=== PATIENT | male | born 1970 | race Caucasian/White ===

== ENCOUNTER 2016-07-06 05:53 | Emergency (ER) | payer OTHER ==
[~2016-07-06] VITALS: Ht 175.3 cm; Wt 95.5 kg
[~2016-07-06 05:53] MED LIST: HYDR-4003 PO; OMEP20CA11 PO
[2016-07-06 05:56] VITALS: BP 156/101; PULSE 104; RESP 16; O2SAT 96
--- NOTE | 2016-07-06 06:29 | ED.REPORT ---
HPI-Hand Prob/Inj Date of Service Jul 06, 2016 ED Provider: Maida Payan MD 45 year old male presents to the ER complaining of a laceration to the right index finger due to his pocket knife collapsing on the finger while working on his car an hour ago. Last tetanus vaccination was 2013. He does not voice any further medical complaints. Nursing Notes Stated Complaint: RT INDEX FINGER INJURY Chief Complaint: Extremity Trauma Nursing Notes Reviewed: Yes Allergies: Coded Allergies: No Known Allergies (Verified Allergy, Unknown, 02/28/16) Scheduled Cephalexin (Keflex) 500 Mg Capsule 500 MG PO TID Omeprazole (Omeprazole) 20 Mg Capsule.dr 20 MG PO DAILY Scheduled PRN Hydrocodone-Acetaminophen 5-325 mg (Hydrocodone-Acetaminophen 5-325 mg) 1 Each Tablet 1 TABLET PO Q12H PRN PRN For Pain General Time Seen by Provider: 06:28 Chief Complaint Finger injury right Hx Obtained From: Patient Arrived By: Walk-in Onset Occurred: Just prior to arrival Symptom Duration: Since onset Caused by: Accidental, Knife wound Location: Right Hand: : Finger... (Index) Quality: Painful Severity: Current: Moderate Severity: Maximum: Moderate Past Medical History Past Medical History chronic back pain lumbar radiculopathy lumbosacral strain Reports: GERD Past Surgical History none reported Smoking History Never Smoker Social History Alcohol Use: "Social" Drug Use: Denies drug use Other Social History: Lives with parents Ambulatory Status Independent Review of Systems Constitutional: Denies: Chills, Fever Musculoskeletal: Reports: Extremity pain (Right Forefinger), Denies: Back pain, Extremity swelling, Joint pain, Lumbar pain, Neck pain, Thoracic pain Complete sys rev & neg: except as marked. Physical Exam Initial Vital Signs Vital Signs (First) Date Time Temp Pulse Resp B/P Pulse Ox O2 Delivery O2 Flow Rate FiO2 07/06/16 05:56 36.8 104 16 156/101 96 Room Air Initial VS: Reviewed Head / Eyes: Atraumatic, Normocephalic, PERRL Neck: Supple, Non-tender, Full range of motion Extremities: Vascular intact, Neuro intact, No swelling, No tenderness Skin: Warm, Dry, No cyanosis Neurologic: Alert, Oriented, Nonfocal Wrist / Hand: Full range of motion, Neurologic intact, Vascular intact 1cm laceration to the Right index finger involving the edge of nail extending 2-3mm deep not into the pad of the finger. Wound is dressed and does not need sutures. Upper Extremity / MS: Atraumatic, Inspection NL, Full range of motion, No swelling, Non-tender, No deformity, Neurologic intact, Vascular intact Lower Extremity / Pelvis / MS: Atraumatic, Inspection NL, Full range of motion , No swelling, Non-tender, No deformity, Neurologic intact, Vascular intact Procedures Splint Application - Fx Mgt Time: 07:19 Procedure Performed by: ED physician Precise Anatomic Location: Right forefinger Type of Immobilization: Aluminum-foam Post-Procedure / Complications: Cap refill normal, Post splint vascular nl, Post splint neuro nl, Condition improved, Tolerated procedure well, Patient stable Splint Post-Applic Eval Extremity Condition: Cap refill < 2 sec, Distal sensation intact, Distal motor Intact, No compartment syndrome Re-Eval/Medical Decision Re-Evaluation/Progress #1: Time of Eval: 06:36 Re-Evaluation/Progress Note: Discussed physical examination and plan to discharge. Patient is amenable to the plan. Re-Evaluation/Progress #2: Time of Eval: 07:20 Re-Evaluation/Progress Note: Applied splint. Return precautions given. All other questions addressed. Counseled Regarding: Diagnosis, Need for follow-up, When/why to return to ED Discharge & Departure Primary Impression: Laceration of finger of right hand Disposition: Home Discharge Condition All VS Reviewed: Yes Condition: Stable Patient Instructions: Finger Laceration (ED) Additional Instructions: Your cut is long, but not deep. As such, I do not believe that it requires stitches. Keep the wound as clean and dry as possible. Use the finger splint for the next few days. Because it is a finger and you work with hands, I am going to start you on a course of antibiotics. Please take as directed. It is important that you complete the entire course of antibiotics, even if symptoms improve. You are up to date on your tetanus vaccination. Return to the ER if you develop fever, chills, any signs of infection, or other concerning symptoms. Referrals: NOPCP (PCP) Scribe Attestation Portions of this note were transcribed by Chula Loo. I, Dr. Payan, personally performed the history, physical exam and medical decision-making; I reviewed and confirmed the accuracy of the information in the transcribed note. Signed by: Cisco Temple, 07/06/2016 and 07:21 Maida Payan MD Jul 06, 2016 06:29 CHULA LOO Jul 06, 2016 06:36
[2016-07-06] MEDS ORDERED: CEPH-512 PO (07:26)
== END 2016-07-06 07:35 | disposition home or self-care (01) ==
LOC: SED 05:53
DX: S61.210A Laceration without foreign body of right index finger without damage to nail, initial encounter (principal); W26.0XXA Contact with knife, initial encounter; Y93.89 Activity, other specified; Y92.9 Unspecified place or not applicable; Y99.8 Other external cause status; K21.9 Gastro-esophageal reflux disease without esophagitis

== ENCOUNTER 2016-12-26 14:03 | Emergency (ER) | payer OTHER ==
[~2016-12-26] VITALS: Ht 175.3 cm; Wt 81.6 kg
[~2016-12-26 14:03] MED LIST changes: +CEPH-512 PO
[2016-12-26 14:07] VITALS: BP 167/100; PULSE 112; RESP 18; O2SAT 98
== END 2016-12-26 15:30 | disposition left against medical advice (07) ==
LOC: SED 14:03
DX: Z53.20 Procedure and treatment not carried out because of patient's decision for unspecified reasons (principal)

== ENCOUNTER 2016-12-28 12:32 | Emergency (ER) | payer OTHER ==
[~2016-12-28] VITALS: Ht 175.3 cm; Wt 81.8 kg
[2016-12-28 12:33] VITALS: BP 146/90; PULSE 102; RESP 18; O2SAT 99
--- NOTE | 2016-12-28 14:22 | ED.REPORT ---
HPI-Rash / Abscess Date of Service Dec 28, 2016 ED Provider: Zack Romero PA-C 46-year-old male reporting a 4 day history of a widely distributed rash according the nursing report. Nursing Notes Stated Complaint: RASH Chief Complaint: Skin Rash/Abscess Nursing Notes Reviewed: Yes Allergies: Coded Allergies: No Known Allergies (Verified Allergy, Unknown, 02/28/16) Scheduled Cephalexin (Keflex) 500 Mg Capsule 500 MG PO TID Omeprazole (Omeprazole) 20 Mg Capsule.dr 20 MG PO DAILY Scheduled PRN Hydrocodone-Acetaminophen 5-325 mg (Hydrocodone-Acetaminophen 5-325 mg) 1 Each Tablet 1 TABLET PO Q12H PRN PRN For Pain General Time Seen by MD: 14:12 Chief Complaint Rash Past Medical History Past Medical History chronic back pain lumbar radiculopathy lumbosacral strain Reports: GERD Past Surgical History none reported Smoking History Current Every Day Smoker Social History Alcohol Use: "Social" Drug Use: Denies drug use Other Social History: Lives with parents Ambulatory Status Independent Review of Systems Review of Systems Note: Not collected, patient departed prior to being seen Physical Exam Physical Exam Notes: Not performed Initial Vital Signs Vital Signs (First) Date Time Temp Pulse Resp B/P Pulse Ox O2 Delivery O2 Flow Rate FiO2 12/28/16 12:33 36.9 102 18 146/90 99 Room Air Mild tachycardia, elevated blood pressure Discharge & Departure Departure Notes I signed up for this patient and reviewed nursing notes. I discussed the case with his nurse. Patient was not in the chair when I went to interview and examine him. I am told he departed. Impression: Primary Impression: Patient departed from facility Disposition: LEFT WITHOUT BEING SEEN Referrals: Tristan Mason DO (PCP) Zack Romero PA-C Dec 28, 2016 14:22
== END 2016-12-28 14:00 | disposition left against medical advice (07) ==
LOC: SED 12:32
DX: Z53.20 Procedure and treatment not carried out because of patient's decision for unspecified reasons (principal)